=== PATIENT | female | born 1960 | race Caucasian/White ===

== ENCOUNTER 2016-06-13 14:53 | Emergency (ER) | payer OTHER ==
[2016-06-13 15:39] LABS: HEMOGLOBIN 15.3 gm/dl (12.3-15.3); RED BLOOD COUNT 5.01 M/UL (4.00-5.10); WHITE BLOOD COUNT 8.4 K/UL (4.5-11.0)
[2016-06-13 15:54] LABS: BUN/CREATININE RATIO 9 (0-10)
== END 2016-06-13 21:28 | disposition home or self-care (01) ==
LOC: ER1 14:53
PROVIDERS: Emergency Medicine
DX: R07.1 Chest pain on breathing (principal); R06.02 Shortness of breath; I10 Essential (primary) hypertension; E78.5 Hyperlipidemia, unspecified; F17.200 Nicotine dependence, unspecified, uncomplicated; Z88.0 Allergy status to penicillin; Z85.41 Personal history of malignant neoplasm of cervix uteri
CPT/HCPCS: 36415; 71010; 80053; 82550; 82553; 83605; 83874; 84484; 85025; 85379; 87040; 93005; 99285; J2060

== ENCOUNTER 2021-08-14 09:02 | Emergency (ER) | payer OTHER | END 2021-08-14 13:11 | disposition home or self-care (01) | LOC: ER1 09:02 | DX: M25.551 Pain in right hip (principal); M25.552 Pain in left hip; M54.50 Low back pain, unspecified; I10 Essential (primary) hypertension; Z88.0 Allergy status to penicillin; F17.200 Nicotine dependence, unspecified, uncomplicated | CPT/HCPCS: 73522; 81001; 99284 ==